=== PATIENT | female | born 1960 | race African-American/Black ===

== ENCOUNTER → 2019-01-21 | Outpatient (CLI) | payer BC, MEDICARE ==
--- NOTE | 2019-01-21 13:32 | Diagnostic Imaging Report ---
CLINICAL INDICATION: Patient with left ankle pain x1 month. No known injury. EXAM: X-ray of the right ankle, three views. COMPARISON: None. FINDINGS: Sinus: There is a chronic calcification seen adjacent to the lateral malleolus. There is no acute fracture or dislocation. There is slight flattened appearance of the talar dome with no cortical disruption seen. There is hypertrophic calcaneal spur at the plantar attachment seen. There is mild soft tissue swelling seen lateral to the ankle. Ankle mortise and syndesmotic joints are unremarkable. IMPRESSION: 1: There is no acute fracture or dislocation. 2: There is chronic calcification seen lateral to the malleolus and slight flattening of the talar head which may be from posttraumatic changes. 3: Hypertrophic calcaneal spur. Dictated by: Dictated on workstation # [id number]
== END ==
LOC: RAD FS 13:13
PROVIDERS: ATTEND Nurse Practitioner
DX: M77.32 Calcaneal spur, left foot (principal); M89.9 Disorder of bone, unspecified
CPT/HCPCS: 73610

== ENCOUNTER 2022-12-15 09:22 | Emergency (ER) | payer BC, MEDICARE ==
[~2022-12-15] VITALS: Ht 165 cm; Wt 72.7 kg
[2022-12-15 09:39] VITALS: BP 162/80
[2022-12-15] MEDS ORDERED: CEFD300C3 PO (09:53)
--- NOTE | 2022-12-15 09:53 | ED EENT ---
History of Present Illness General Chief Complaint: Ear Problems Stated Complaint: LEFT EAR PAIN, SOME IN RIGHT Nursing Triage Note: Patient complains or bilateral ear pain, left for 3 days and the right started hurting today. Source: patient History of Present Illness Date Seen by Provider: Dec 15, 2022 Time Seen by Provider: 09:25 Initial Comments 62-year-old female presenting with complaints of bilateral ear pain with the left starting her on Friday and the right starting her today. She has a history of recurrent ear infections. She had tried taking ibuprofen and using some [id number] eardrops but was still having pain and symptoms were worsening. She had tried to go to urgent care but they were very busy so she came here to the emergency department. She has a allergy to penicillin and oxycodone. She has not been running a fever, chills, nasal congestion, sore throat, cough, neck pain, chest pain, abdominal pain, nausea, vomiting. She has not been on antibiotics recently. She rates her pain at a 6 out of 10 and last took 400 mg of Advil or ibuprofen last night. Timing/Duration: abrupt, other (Started Friday and worse today with both ears hurting) Severity: moderate Location: ear (R), ear (L) Prearrival Treatment: over the counter meds Modifying Factors: Worse With Activity, Worse With Coughing Associated Symptoms: No change in hearing, No cough, No drooling, No ear drainage, No facial pain/swelling, No fever, No malaise, No nasal congestion/drainage, No poor fluid intake, No poor solids intake, No sinus infection, No sore throat, No tooth pain, No voice change Allergies and Home Medications Allergies Coded Allergies: oxycodone (Verified Allergy, Unknown, 12/15/22) penicillin G (Verified Allergy, Unknown, 12/15/22) Patient Home Medication List Home Medication List Reviewed: Yes Cefdinir (Cefdinir) 300 Mg Capsule, 300 MG PO BID Prescribed by: MANSOOR YEUNG on 12/15/22 0953 Review of Systems Review of Systems Constitutional: No chills, No dizziness, No fever Eyes: No Symptoms Reported Ears: See HPI; Denies Bloody Discharge, Denies Clear Discharge, Denies Purulent Discharge, Denies Serosanguinous Discharge Nose: denies clots, denies congestion, denies epistaxis Mouth: no symptoms reported Throat: no symptoms reported Respiratory: no symptoms reported Cardiovascular: no symptoms reported Gastrointestinal: no symptoms reported Musculoskeletal: no symptoms reported Skin: no symptoms reported Neurological: No Symptoms Reported Past Cxgtsus-[id number]-[id number] Hx Patient Social History Tobacco Use?: No Use of E-Cig and/or Vaping dev: No Substance use?: No Alcohol Use?: No Past Medical History Surgery/Hospitalization HX: Recurrent ear infections Physical Exam Vital Signs Vital Signs - First Documented 12/15/22 09:39 Temp 35.5 Pulse 118 Resp 16 B/P (MAP) 162/80 (107) Pulse Ox 100 O2 Delivery Room Air Height, Weight, BMI Height: '" Weight: lbs. oz. kg; 26.00 BMI Method: General Appearance: WD/WN, no apparent distress Eyes: bilateral eye PERRL, bilateral eye EOMI Ears: bilateral ear TM dull (mild dullness to bilateral TM, worse on right side), bilateral ear other (white effusion bilaterally with mild dullness to taye ateral TM, worse on right side. Mild erythema to canal bilaterally) Mouth/Throat: pharynx normal Neck: non-tender, full range of motion, supple, normal inspection Cardiovascular: normal peripheral pulses, regular rate, rhythm Respiratory: chest non-tender, lungs clear, normal breath sounds Neurologic/Psychiatric: alert, oriented x 3 Skin: normal color, warm/dry Progress/Results/Core Measures Results/Orders Vital Signs/I&O 12/15/22 09:39 Temp 35.5 Pulse 118 Resp 16 B/P (MAP) 162/80 (107) Pulse Ox 100 O2 Delivery Room Air Blood Pressure Mean: 107 Progress Progress Note : Progress Note Potential diagnosis of recurrent serous otitis media, seasonal allergies, bilateral middle ear effusion, sinusitis, URI, influenza, COVID, pharyngitis. That she was not running a fever or having chills and symptoms of this started 3 days ago but not exhibiting signs of sepsis or overwhelming infection will try treating the fluid and dullness in her ears. Since she has recurrent otitis media will cover with an antibiotic for possible early otitis media since she has bilateral middle ear effusion. Although she has an allergy to penicillin she has tolerated cephalosporins before. Prescribe cefdinir 300 mg p.o. twice daily x7 days. Encourage fluids and hydration. May continue with ibuprofen and acetaminophen [id number] as needed for pain. Continue to use the Flonase nasal steroid spray to try and help with relieving pressure draining fluid from the ears. Could also had an antihistamine such as Zyrtec or Claritin over-the- counter to help with some of the effusion in her ears. Counseled on follow-up and return precautions. Advised to check back with the clinic or return if not improving with the medications. Departure Impression Primary Impression: Acute serous otitis media, recurrent, bilateral Additional Impression: Acute pain of both ears Disposition: 01 HOME, SELF-CARE Condition: Stable Departure-Patient Inst. Decision time for Depature: 09:51 Referrals: [facility] (PCP) Primary Care Physician JANINA LAU APRN (Family) Primary Care Physician Patient Instructions: Ear Infections (Otitis Media) in Adults (DC), Fluid in the Ear ED Add. Discharge Instructions: Continue using the Flonase nasal spray to try and help with relieving pressure and drainage of the fluid from the ears and sinuses. You could also take an antihistamine such as Zyrtec or Claritin to help with the fluid in your ears. Take the full course of antibiotics to treat for possible bacterial source of infection causing the ear pain and fluid buildup. He can continue to take ibuprofen [id number] 200 mg pills dosed at 2 pills every 4-6 hours or 3 pills every 6 hours as needed for pain. You can also take acetaminophen 2 regular strength 325 mg pills or 650 mg every 6 hours as needed for pain. Check back to the clinic for continued symptoms or if not improving with the medication. All discharge instructions reviewed with patient and/or family. Voiced understanding. Scripts Cefdinir (Cefdinir) 300 Mg Capsule 300 MG PO BID for otitis media for 7 Days, #14 CAP 0 Refills Prov: MANSOOR YEUNG MD 12/15/22 MANSOOR YEUNG MD Dec 15, 2022 09:53
== END 2022-12-15 10:00 | disposition home or self-care (01) ==
LOC: EDUNIT# 09:22 → ER FS 09:24
DX: H65.06 Acute serous otitis media, recurrent, bilateral (principal); Z88.0 Allergy status to penicillin
CPT/HCPCS: 99281